=== PATIENT | male | born 2000 | race Hispanic/Latino ===

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

== ENCOUNTER 2021-04-19 13:26 | Emergency (ER) | payer MEDICAID ==
[~2021-04-19] VITALS: Ht 167.6 cm; Wt 49.9 kg
[2021-04-19 14:00] VITALS: BP 129/83
[2021-04-19 14:30] VITALS: BP 129/83
[2021-04-19] MEDS ORDERED: IVER3TAB PO (15:04)
[2021-04-20] MEDS ORDERED: ALBU8.5H8 IH (02:37)
[2021-04-20] MEDS ORDERED: CYCL10TA7 PO (02:37)
[2021-04-20] MEDS ORDERED: ONDA4TAB10 PO (02:37)
== END 2021-04-19 15:45 | disposition home or self-care (01) ==
LOC: EDH 13:26
DX: U07.1 COVID-19 (principal); J45.909 Unspecified asthma, uncomplicated
CPT/HCPCS: 87635; 87804 ×2; 99283; C9803

== ENCOUNTER 2021-04-19 23:29 | Emergency (ER) | payer MEDICAID ==
[~2021-04-19] VITALS: Ht 167.6 cm; Wt 49.9 kg
[~2021-04-19 23:29] MED LIST: IVER3TAB PO
[2021-04-20] MEDS ORDERED: ACETAMINOPHEN 500 MG TABLET PO ONE (01:00)
[2021-04-20] MEDS ORDERED: IBUPROFEN 600 MG TABLET PO ONE (01:00)
[2021-04-20] MEDS ORDERED: CYCL10TA7 PO (02:37)
[2021-04-20] MEDS ORDERED: ONDA4TAB10 PO (02:37)
[2021-04-20] MEDS ORDERED: ALBU8.5H8 IH (02:37)
== END 2021-04-20 02:50 | disposition home or self-care (01) ==
LOC: EDH 04-20 00:18
DX: U07.1 COVID-19 (principal); M79.10 Myalgia, unspecified site; J45.909 Unspecified asthma, uncomplicated; Z79.899 Other long term (current) drug therapy; Z79.1 Long term (current) use of non-steroidal anti-inflammatories (NSAID)
CPT/HCPCS: 71045

== ENCOUNTER 2022-02-13 17:58 | Emergency (ER) | payer MEDICAID ==
[~2022-02-13] VITALS: Ht 170.2 cm; Wt 48.1 kg
[~2022-02-13 17:58] MED LIST changes: +ALBU8.5H8 IH; +CYCL-309 PO; +ONDA4TAB10 PO
[2022-02-13 18:52] LABS: BASOPHILS % (AUTO) 0.5 % (0.0-5.0); EOSINOPHILS % (AUTO) 0.7 % (0.0-8.0); HEMATOCRIT 48.5 % (42-54); LYMPHOCYTES % (AUTO) 17.4 % (21.0-51.0); MEAN CORPUSCULAR HEMOGLOBIN 30.1 pg (27.0-33.0); MEAN CORPUSCULAR HGB CONC 33.6 g/dL (32.0-36.0); MEAN CORPUSCULAR VOLUME 89.5 fL (80-100); MONOCYTES % (AUTO) 10.2 % (3.0-13.0); PLATELET COUNT (AUTO) 234 K/uL (130-400); RED BLOOD CELL COUNT(AUTO) 5.42 MIL/uL (4.50-6.20); RED CELL DISTRIBUTION WIDTH 12.2 % (11.0-15.5); WHITE BLOOD COUNT (AUTO) 6.1 K/uL (4.8-10.8)
[2022-02-13 19:09] LABS: CREATININE 0.9 mg/dL (0.5-1.5); POTASSIUM 3.7 mmol/L (3.5-5.1)
[2022-02-13 19:13] LABS: ALBUMIN 4.2 g/dL (3.5-5.0); BILIRUBIN,TOTAL 0.9 mg/dL (0.2-1.0); TOTAL PROTEIN, SERUM 7.7 g/dL (6.0-8.3)
[2022-02-13 19:48] LABS: APPEARANCE,URINE Clear (CLEAR); BILIRUBIN,URINE Negative (NEGATIVE); COLOR,URINE Dark Yellow (YELLOW); GLUCOSE, URINE (UA) Negative (NEGATIVE); KETONES,URINE Negative (NEGATIVE); LEUKOCYTE ESTERASE ,URINE Negative (NEGATIVE); NITRATE,URINE Negative (NEGATIVE); OCCULT BLOOD,URINE Negative (NEGATIVE); PROTEIN,URINE POS 1+ mg/dL (NEGATIVE); UROBILINOGEN,URINE 0.2 mg/dL (0.2-1.0)
[2022-02-13 19:56] LABS: BACTERIA,URINE Few /HPF (None Seen); MUCUS,URINE Few LPF (None Seen); RBC,URINE None Seen /HPF (0-1); SQUAMOUS EPITHELIAL CELL,UR None Seen /HPF (0-2); WBC,URINE None Seen /HPF (0-1)
[2022-02-13 21:10] VITALS: BP 121/70
== END 2022-02-13 21:36 | disposition home or self-care (01) ==
LOC: EDH 17:58
DX: A08.4 Viral intestinal infection, unspecified (principal); J45.909 Unspecified asthma, uncomplicated; Z20.822 Contact with and (suspected) exposure to COVID-19
CPT/HCPCS: 36415; 80053; 81001; 83690; 85025; 87635; 87804 ×2; 99283; C9803

== ENCOUNTER 2024-06-07 14:27 | Emergency (ER) | payer MEDICAID ==
[~2024-06-07] VITALS: Ht 167.6 cm; Wt 49.9 kg
[~2024-06-07 14:27] MED LIST changes: +ONDA-243 PO; -ONDA4TAB10 PO
[2024-06-07 15:36] LABS: RAPID GROUP A STREP negative (NEGATIVE)
[2024-06-07 15:43] LABS: COVID19 (SARS ANTIGEN RAPID) PRESUMPTIVE NEGATIVE (NEGATIVE); INFLUENZA TYPE A Negative For Type A (NEGATIVE); INFLUENZA TYPE B Negative For Type B (NEGATIVE)
[2024-06-07] MEDS ORDERED: BUDE0.5A3 IH (16:40)
[2024-06-07] MEDS ORDERED: METH4TAB3 PO (16:40)
[2024-06-07] MEDS: dexaMETHasone SOD PHOSPHATE 4 MG/ML 1ML VIAL IM ONE (16:47)
[2024-06-07 16:48] VITALS: BP 132/52; PULSE 78; RESP 20; TEMP 98.8; O2SAT 97
== END 2024-06-07 16:55 | disposition home or self-care (01) ==
LOC: EDH 14:27
DX: J06.9 Acute upper respiratory infection, unspecified (principal); R05.9 Cough, unspecified; R50.9 Fever, unspecified; Z20.822 Contact with and (suspected) exposure to COVID-19
CPT/HCPCS: 99283; 87426; 87880; 87804 ×2; 96372; J1100

== ENCOUNTER 2024-10-04 12:38 | Emergency (ER) | payer MEDICAID ==
[~2024-10-04] VITALS: Ht 167.6 cm; Wt 48.1 kg
[~2024-10-04 12:38] MED LIST changes: +BUDE0.5A3 IH; +METH4TAB3 PO
[2024-10-04] MEDS: TETRACAINE HCL 0.5% 4 ML OPHTH SOLN OP SCH (13:17)
[2024-10-04] MEDS: FLUORESCEIN SODIUM 1 STRIP STRIP OP SCH (13:17)
[2024-10-04 13:18] VITALS: BP 113/79; PULSE 99; RESP 20; TEMP 98.6; O2SAT 98
--- NOTE | 2024-10-04 13:37 | ERN ---
General Chief Complaint: Eye Problems Stated Complaint: EYE PROB Time Seen by MD: 12:45 Time Seen by Midlevel: 12:45 Source: patient History of Present Illness Initial Comments Patient is a 24-year-old male presenting to the emergency department with left eye pain and redness. Patient states he was mowing the lawn with a weed eater two days ago when an unknown object hit the lateral side of his left eye. The pain has progressively worsened. Patient has a foreign body sensation to the area. Denies any other symptoms or concerns at this time. Allergies: Coded Allergies: No Known Drug Allergies (Unverified Allergy, Unknown, 09/29/19) Home Meds Active Scripts Methylprednisolone (Medrol) 4 Mg Tab.ds.pk, 4 MG PO AD, #1 UNIT Prov:JAIME UMAÑA NP 06/07/24 Budesonide (Budesonide) 0.5 Mg/2 Ml Ampul.neb, 0.5 MG IH BID for 7 Days, #25 UNIT Prov:JAIME UMAÑA NP 06/07/24 Ondansetron (Ondansetron Odt) 4 Mg Tab.rapdis, 4 MG PO Q6HPRN, #20 TAB 0 Refills Prov:JUSTYNA SANCHEZ MD 04/20/21 Cyclobenzaprine HCl (Cyclobenzaprine HCl) 10 Mg Tablet, 10 MG PO TIDP, #20 TAB 0 Refills Prov:JUSTYNA SANCHEZ MD 04/20/21 Albuterol Sulfate (Proair Hfa) 8.5 Gm Hfa.aer.ad, 2 PUFF IH Q4HPRN, #1 INHALER 0 Refills Prov:JUSTYNA SANCHEZ MD 04/20/21 Ivermectin (Ivermectin) 3 Mg Tablet, 3 MG PO DAILYBKFST for 5 Days, #5 TAB 0 Refills Prov:RIP LERMA NP 04/19/21 Past Medical History Past Medical History: Asthma Past Surgical History: Other Surgical History Other: RIGHT HAND Family History Family History: Negative Social History Social History: Negative ROS Dictation CONSTITUTIONAL: Negative except for HPI HEAD/FACE: Negative except for HPI EENT: Negative except for HPI RESPIRATORY: Negative except for HPI GASTROINTESTINAL/ABDOMINAL: Negative except for HPI GENITOURINARY: Negative except for HPI MUSCULOSKELETAL: Negative except for HPI INTEGUMENTARY: Negative except for HPI NEUROLOGICAL/PSYCH: Negative except for HPI HEMATOLOGIC/LYMPHATIC: Negative except for HPI All Systems Negative, Except as noted above. 13 point review of systems assessed and all negative except for above. Physical Exam Physical Exam Dictation Vital Signs reviewed General Appearance: Alert, oriented x 3, no acute distress, well developed, nourished. Head and Face: non-traumatic. Eyes: PERRL, pink conjunctivas, eyelid no trauma, anterior chamber with arcus senilis. Left corneal abrasion Ears: Pinnas intact and no signs of trauma or erythema ear canals clear and no discharge TM no erythema Nose: No discharge, no bleeding. Oropharynx: Mouth normal, tongue pink, pharynx clear,no erythema, tonsils no exudates, no abscesses noted, mucous membrane moist Neck: Supple, non-tender, no thyromegaly, no masses, no JVD, no bruits Breast:Deferred Chest:No tenderness, no crepitus, no paradoxical movement, no retractions Lungs:Clear, well-ventilated, symmetric, no rales, no wheezing, no rhonchi, no stridor, good breath sounds bilaterally Heart: Regular rate, regular rhythm, no murmur, no gallops Vascular: no peripheral edema, Abdomen: Soft, positive bowel sounds, nondistended, no guarding, nontender, no rebound, no masses no hepatomegaly, no splenomegaly, no Walls's sign, no hernias. Rectal: Deferred Genital: Deferred Neurological: Normal speech, motor function intact, sensory function intact Musculoskeletal: Neck nontender, full range of motion, back nontender, full range of motion, Extremities: nontender, full range of motion Skin: Color pink, dry, no turgor, no rash, no lacerations, no abrasions, no contusions. Lymphatic: Deferred MDM MDM: Patient is a 24-year-old male presenting to the ER with a foreign body sensation to the left eye. On physical examination patient is in no acute distress. I applied tetracaine to the left eye and stained it. There is a corneal abrasion at the 5:00 a'clock position. The patient was given TobraDex in the emergency department and will be discharged home with a prescription for TobraDex for outpatient management. Patient was advised to follow up with PCP for repeat evaluation in 2-3 days. Return precautions discussed Differential diagnosis: Foreign body, corneal abrasion, corneal ulcer There are no social concerns with this patient. Prescription drug management Prescriptions will include: TobraDex Medical management and examination interpretation discussions were had by me with other qualified healthcare professionals as indicated for the patient's care. ED Course Orders Procedure Category Date Status Time Tetracaine Hcl PHA 10/04/24 In Process (Pontocaine 0.5% 13:00 Fluorescein Sodium PHA 10/04/24 In Process (Qpunb-Z-Ncyjo At) 13:00 Tobramycin PHA 10/04/24 In Process Sulf/Dexamethasone 14:00 Current Medications Medications (Trade) Dose Ordered Sig/Rubia Route PRN Reason Start Time Stop Time Status Last Admin Dose Admin Fluorescein Sodium (Ktfvi-C-Ceegr At) 1 strip ONCE OP 10/04/24 13:00 11/03/24 12:59 10/04/24 13:17 Tetracaine HCl (Pontocaine 0.5% Ophth Soln) 1 OR 2 DROPS ONCE OP 10/04/24 13:00 11/03/24 12:59 10/04/24 13:17 Tobramycin/ Dexamethasone (TobraDEX EYE DROPS) 1 DROP ONCE OD 10/04/24 14:00 11/03/24 13:59 Vital Signs Date Time Temp Pulse Resp B/P (MAP) Pulse Ox O2 Delivery O2 Flow Rate FiO2 10/04/24 13:18 98.6 99 20 113/79 98 Room Air* 0 21 10/04/24 12:49 98.6 99 20 113/79 98 Room Air 0 DX & DISP Disposition: Discharge Departure Impression: Primary Impression: Injury of conjunctiva and corneal abrasion of left eye w/o FB Condition: Stable Additional Instructions: Your physical examination shows a small corneal abrasion to her left eye. You were given antibiotic eyedrops in the emergency department. Please continue antibiotic eyedrops at home as discussed. Return to the ER for any new or worsening symptoms Referrals: JOSHUA RAE (PCP) I have reviewed the case, and I agree with, Diagnosis and Plan I performed the substantive portion of the visit. I have reviewed and personally made and approve the management plan that is documented in the note by myself or the ROMAIN. I acknowledge for responsibility for the patient's management plan. MARCELINO BUCKNER Oct 04, 2024 13:37
[2024-10-04] MEDS: TobRAMYCin/DEXAmethASONE OPTH SUSP 2.5 ML BOT OD SCH (14:43)
== END 2024-10-04 14:57 | disposition home or self-care (01) ==
LOC: EDH 12:38
DX: S05.02XA Injury of conjunctiva and corneal abrasion without foreign body, left eye, initial encounter (principal); J45.909 Unspecified asthma, uncomplicated; W22.8XXA Striking against or struck by other objects, initial encounter; Y93.89 Activity, other specified; Y92.89 Other specified places as the place of occurrence of the external cause; Y99.8 Other external cause status
CPT/HCPCS: 99283

== ENCOUNTER 2025-05-10 17:26 | Emergency (ER) | payer MEDICAID ==
[~2025-05-10] VITALS: Ht 167.6 cm; Wt 49.4 kg
[2025-05-10 17:50] LABS: RAPID GROUP A STREP negative (NEGATIVE)
[2025-05-10 18:00] LABS: INFLUENZA TYPE A Negative For Type A (NEGATIVE); INFLUENZA TYPE B Negative For Type B (NEGATIVE)
--- NOTE | 2025-05-10 18:17 | ERN ---
General Chief Complaint: Other Problems Stated Complaint: COVID LIKE-SX Time Seen by MD: 17:39 Source: patient History of Present Illness Initial Comments Patient is a 25-year-old male coming in complaining of URI symptoms. Per patient he was exposed to COVID by multiple coworkers. He states that he has been having a sore throat nasal congestion as well. Allergies: Coded Allergies: No Known Drug Allergies (Unverified Allergy, Unknown, 09/29/19) Home Meds Active Scripts Methylprednisolone (Medrol) 4 Mg Tab.ds.pk, 4 MG PO AD, #1 UNIT Prov:JAIME UMAÑA [employer] 06/07/24 Budesonide (Budesonide) 0.5 Mg/2 Ml Ampul.neb, 0.5 MG IH BID for 7 Days, #25 UNIT Prov:JAIME UMAÑA [employer] 06/07/24 Ondansetron (Ondansetron Odt) 4 Mg Tab.rapdis, 4 MG PO Q6HPRN, #20 TAB 0 Refills Prov:JUSTYNA SANCHEZ MD 04/20/21 Cyclobenzaprine HCl (Cyclobenzaprine HCl) 10 Mg Tablet, 10 MG PO TIDP, #20 TAB 0 Refills Prov:JUSTYNA SANCHEZ MD 04/20/21 Albuterol Sulfate (Proair Hfa) 8.5 Gm Hfa.aer.ad, 2 PUFF IH Q4HPRN, #1 INHALER 0 Refills Prov:JUSTYNA SANCHEZ MD 04/20/21 Ivermectin (Ivermectin) 3 Mg Tablet, 3 MG PO DAILYBKFST for 5 Days, #5 TAB 0 Refills Prov:RIP LERMA NP 04/19/21 Past Medical History Past Medical History: Asthma Past Surgical History: None Surgical History Other: RIGHT HAND Family History Family History: Negative Social History Social History: Negative ROS Dictation CONSTITUTIONAL: No chills, no fever, no weakness, no diaphoresis, no malaise. HEAD/FACE: No signs of trauma. EENT: No eye pain, no blurred vision, no tearing, no double vision, no ear pain, no ear discharge, no nose pain, nasal congestion, no throat pain, no throat swelling, no mouth pain. RESPIRATORY: No cough, no orthopnea, no SOB, no stridor, no wheezing. CARDIOVASCULAR: No chest pain, no edema, no palpitations, no syncope. GASTROINTESTINAL/ABDOMINAL: No abdominal pain, no constipation, no diarrhea, no nausea, no vomiting. GENITOURINARY: No abnormal discharge, no dysuria, no frequent urination, no hematuria. No complaints of pain in the genitals. MUSCULOSKELETAL: No back pain, no gout, no joint pain, no joint swelling, no muscle pain, no muscle stiffness, no neck pain. INTEGUMENTARY: No change in color, no change in hair/nails, no dryness, no lesion, no lumps, no rash. NEUROLOGICAL/PSYCH: No anxiety, not depressed, no emotional problem, no h eadache, no numbness, no pre-existing deficit, no history of seizures, no tremors, no weakness. HEMATOLOGIC/LYMPHATIC: Not anemic, no history of blood clots, no apparent bleeding, no bruising, glands not swollen. All Systems Negative, Except as Noted. Physical Exam Physical Exam Dictation VITAL SIGNS: Reviewed. GENERAL APPEARANCE: Alert, oriented x3, no acute distress, obese. HEAD AND FACE: Non-traumatic. EYES: PERRL, pink conjunctivas, eyelid no trauma, anterior chamber clear. EARS: Pinnas intact and no signs of trauma or erythema. Ear canals clear and no discharge. TMs no erythema. NOSE: No discharge, no bleeding. OROPHARYNX: Mouth normal, teeth no caries, tongue pink. Pharynx clear, no erythema. Tonsils no exudates, no abscesses noted. Mucous membrane moist. NECK: Supple, non-tender, no thyromegaly, no masses, no JVD, no bruits. BREAST: Deferred. CHEST: No tenderness, no crepitus, no paradoxical movement, no retractions. LUNGS: Clear, well-ventilated, symmetric, no rales, no wheezing, no rhonchi, no stridor, good breath sounds bilaterally. HEART: Regular rate, regular rhythm, no murmur, no gallops. VASCULAR: No peripheral edema. ABDOMEN: Soft, positive bowel sounds, nondistended, no guarding, nontender, no rebound, no masses no hepatomegaly, no splenomegaly, no Walls's sign, no hernias. RECTAL: Deferred. GENITAL: Deferred. NEUROLOGICAL: Normal speech, gross motor function intact, gross sensory function intact. MUSCULOSKELETAL: Neck nontender, full range of motion, back nontender, full range of motion. EXTREMITIES: Nontender, full range of motion. SKIN: Color pink, dry, no turgor, no rash, no lacerations, no abrasions, no contusions. LYMPHATICS: Deferred. Results Laboratory and Microbiology Lab and Micro Result Laboratory Tests Test 05/10/25 17:31 Influenza Type A Antigen Negative For Type A Influenza Type B Antigen Negative For Type B SARS-CoV-2 Antigen (Rapid) POSITIVE FOR SARS AG Group A Streptococcus Rapid negative (NEGATIVE) Labs Reviewed?: Yes MDM MDM: Differential diagnosis: COVID-19, URI, influenza, Rationale: Tests considered and ordered secondary to shared decision making include: Previous outside records reviewed: Old ER visits. Risk of complication and/or morbidity or mortality of patient management: None Medications-Per medication reconciliation Need for hospitalization: Patient does not meet criteria for hospitalization. Need for emergency major/minor surgery: No Patient is a 25-year-old male coming in with a URI symptoms. Laboratory workup was positive for COVID-19. Patient will be discharged in stable condition with a diagnosis of COVID-19. Did advised her appropriate follow up with the PCP for ongoing management. ED Course Orders Procedure Category Date Status Time Rapid (Group A Strep) LAB 05/10/25 Complete 17:31 Influenza Type A & B, LAB 05/10/25 Complete Rapid 17:31 Covid19 (Sars Antigen LAB 05/10/25 Complete Rapid) 17:31 Vital Signs Date Time Temp Pulse Resp B/P (MAP) Pulse Ox O2 Delivery O2 Flow Rate FiO2 05/10/25 17:30 98.2 97 16 120/73 98 Room Air* 0 21 05/10/25 17:28 98.2 97 16 120/73 98 Room Air 0 DX & DISP Disposition: Discharge Departure Impression: Primary Impression: COVID-19 Condition: Stable Additional Instructions: FOLLOW-UP WITH PRIMARY CARE PROVIDER IN 1 TO 2 DAYS. TAKE MEDICATIONS DIRECTED HERE IN THE EMERGENCY ROOM. OKAY TO CONTINUE HOME MEDICATIONS UNLESS OTHERWISE DISCUSSED DURING YOUR VISIT IN THE EMERGENCY ROOM TODAY. RETURN TO YOUR NEAREST EMERGENCY ROOM IF SYMPTOMS WORSEN OR IF THERE IS NO IMPROVEMENT. CALL 911 IF YOU NEED IMMEDIATE ASSISTANCE. TAKE TYLENOL [id number] NEEDED AND IF NO CONTRAINDICATIONS ARE PRESENT. INCREASE ORAL HYDRATION. A WOUND CULTURE OR URINE CULTURE WAS ORDERED HERE IN THE EMERGENCY ROOM DEPARTMENT PLEASE FOLLOW-UP WITH PRIMARY CARE PROVIDER AND ADVISE THEM TO GET REPORTS FROM OUR FACILITY. IF YOU HAD ANY SUN WRAP/SPLINTS THAT WERE APPLIED HERE, PLEASE DO NOT REMOVE THEM UNTIL YOU SEE YOUR PRIMARY CARE OR SPECIALTY. Referrals: Referrals: JOSHUA RAE (PCP) Time of Disposition: 18:31 VISHNU BLOUNT MD May 10, 2025 18:17
[2025-05-10 18:28] LABS: COVID19 (SARS ANTIGEN RAPID) POSITIVE FOR SARS AG (NEGATIVE)
[2025-05-10 18:30] VITALS: BP 124/72; PULSE 92; RESP 16; TEMP 98.3; O2SAT 98
== END 2025-05-10 18:38 | disposition home or self-care (01) ==
LOC: EDH 17:26
DX: U07.1 COVID-19 (principal); J45.909 Unspecified asthma, uncomplicated; Z79.899 Other long term (current) drug therapy
CPT/HCPCS: 87426; 87804; 87880; 99283